=== PATIENT | male | born 1945 | race Caucasian/White ===

== ENCOUNTER 2025-04-12 02:15 | Inpatient (IN) | payer MEDICARE, MEDICAID ==
[~2025-04-12] VITALS: Ht 365.8 cm; Wt 70.3 kg
[2025-04-12] VITALS (28 sets, daily range): BP systolic 89–125; BP diastolic 51–69; PULSE 91–163; RESP 20–40; TEMP 36.2–36.8; O2SAT 95–100
[2025-04-12] MEDS: PIPERACILLIN/TAZO 3.375G/50ML 50 ML IV ONE (03:05)
[2025-04-12] MEDS: ACETAMINOPHEN 650MG SUPP PR STA (03:05)
[2025-04-12] MEDS: SODIUM CHLORIDE 0.9% (SEPSIS BOLUS) IV ONE (03:05)
[2025-04-12 03:07] LABS: BG BASE EXCESS 3.2 mmol/L (-2.0-3.0); BG CARBOXYHEMOGLOBIN 0.5 % (0.5-1.5); BG DEOXYHEMOGLOBIN 2.3 % (0.0-5.0); BG FRACTION INSPIRED OXYGEN 50; BG HCO3 ACT 25.5 mmol/L (21.0-28.0); BG METHEMOGLOBIN 0.2 % (0.5-1.5); BG OXYGEN SATURATION 97.7 % (94.0-98.0); BG OXYHEMOGLOBIN 97.0 % (94.0-98.0); BG PCO2 30.1 mmHg (35.0-48.0); BG PEEP (cmH2O) 5.0 cmH2O; BG PH 7.545 (7.350-7.450); BG PO2 89.0 mmHg (83.0-108.0); BG SAMPLE SITE RIGHT BRACHIAL; BG TIDAL VOLUME(mL) 500.0 mL; BG TOTAL HEMOGLOBIN 9.3 g/dL (13.5-17.5); BG TOTAL RESPIRATORY RATE 36 b/min; BG VENT MODE VENT - AC; BG VENT RATE 14.0 set
[2025-04-12 03:15] LABS: CLARITY URINE CLEAR (CLEAR); COLOR URINE DARK YELLOW (YELLOW); GLUCOSE URINE NEGATIVE (NEGATIVE); KETONES URINE NEGATIVE (NEGATIVE); LEUKOCYTE ESTERASE URINE TRACE (NEGATIVE); NITRITE URINE NEGATIVE (NEGATIVE); OCCULT BLOOD URINE NEGATIVE (NEGATIVE); PH URINE 5.5 (4.5-8.0); PROTEIN URINE 2+ (NEGATIVE); SPECIFIC GRAVITY URINE 1.030 (1.005-1.030); UROBILINOGEN URINE 1.0 E.U./dL (0.2-1.0)
[2025-04-12 03:16] LABS: HEMATOCRIT. 30.8 % (42.0-52.0); HEMOGLOBIN. 9.5 g/dL (14.0-18.0); MEAN PLATELET VOLUME 7.7 fl (7.4-10.4); PLATELET 647 x1000/uL (130-400); RED BLOOD CELL COUNT 3.34 mill/uL (4.7-6.1); RED CELL DISTRIBUTION WIDTH 18.3 % (11.6-14.6)
[2025-04-12 03:28] LABS: INR 1.1
[2025-04-12 03:29] LABS: CREATININE 0.6 mg/dL (0.6-1.3); UREA NITROGEN BLOOD 33 mg/dL (9-23)
[2025-04-12 03:30] LABS: TROPONIN I HIGH SENSITIVITY < 4 ng/L (3.0-53)
[2025-04-12 03:31] LABS: ASPARTATE AMINOTRANSFERASE 25 IU/L (<34); BILIRUBIN DIRECT < 0.1 mg/dL (<=3.0); BILIRUBIN TOTAL 0.2 mg/dL (0.1-1.0); PROTEIN TOTAL 8.6 g/dL (6.0-8.3)
[2025-04-12 03:59] LABS: LACTIC ACID 4.5 mmol/L (0.4-2.0)
[2025-04-12] MEDS: VANCOMYCIN 1G PREMIX 200 ML IV ONE (04:13)
[2025-04-12 04:52] LABS: SQUAMOUS EPITHELIAL CELL URINE FEW /lpf (RARE/1+)
[2025-04-12 04:55] LABS: WBC URINE 0-2 /hpf (0-2)
[2025-04-12 04:56] LABS: RBC URINE 0-2 /hpf (0-2)
[2025-04-12 04:57] LABS: BACTERIA URINE TRACE
[2025-04-12] MEDS: SODIUM CHLORIDE 0.9% 1,000 ML IV ONE ×2 (05:14→10:14)
[2025-04-12 05:42] LABS: TROPONIN I HIGH SENSITIVITY 4 ng/L (3.0-53)
[2025-04-12] MEDS ORDERED: HYDROCODONE/ACETAMINOPHEN 7.5/325MG TABLET GT PRN (05:45)
[2025-04-12] MEDS ORDERED: IPRATROPIUM/ALBUTEROL 0.5-3(2.5)MG/3ML NEB NEB PRN (05:45)
[2025-04-12] MEDS ORDERED: ACETAMINOPHEN 650MG/20.3ML UDC GT PRN (05:45)
[2025-04-12] MEDS ORDERED: DIPHENHYDRAMINE 12.5MG/5ML UDC GT PRN (05:45)
[2025-04-12] MEDS ORDERED: BISACODYL 5MG TABLET PO PRN (05:45)
[2025-04-12] MEDS ORDERED: BISACODYL 10MG SUPP PR PRN (05:45)
[2025-04-12] MEDS ORDERED: ONDANSETRON HCL 4MG TABLET PO PRN (05:45)
[2025-04-12 06:29] LABS: BAND% 7.0 % (1.0-6.0); EOSINOPHILS % MANUAL 1.0 % (0.0-5.0); LYMPHOCYTES % MANUAL 9.0 % (20.0-50.0); MONOCYTES % MANUAL 3.0 % (2.0-8.0); NEUTROPHILS % MANUAL 80.0 % (45.0-75.0); PLATELET ESTIMATE INCREASED
[2025-04-12] MEDS ORDERED: NALOXONE HCL 0.4MG/ML VIAL IV PRN (06:45)
[2025-04-12] MEDS ORDERED: DEXT 5%/0.45% NACL 1000ML 1,000 ML IV SCH (07:00)
[2025-04-12] MEDS: ALBUTEROL (0.083%) 2.5MG/3ML NEB INH SCH (08:22)
[2025-04-12] MEDS: FOLIC ACID 1MG TABLET GT SCH (10:11)
[2025-04-12] MEDS: ZINC SULFATE 220 MG ( 50 ) CAPSULE GT SCH (10:12)
[2025-04-12] MEDS: MULTIVITAMINS,THER W-MINERALS TABLET GT SCH (10:12)
[2025-04-12] MEDS: FAMOTIDINE 20MG TABLET GT SCH (10:12)
[2025-04-12] MEDS: ASCORBIC ACID 500 MG TABLET GT SCH (10:13)
[2025-04-12] MEDS: THIAMINE HCL 100MG TABLET GT SCH (10:13)
[2025-04-12] MEDS: FERROUS SULFATE 300MG/5ML UDC GT SCH (10:15)
[2025-04-12] MEDS: CEFTRIAXONE 2GM/50ML 50 ML IV SCH (10:16)
[2025-04-12] MEDS: AZITHROMYCIN 500MG/250ML 250 ML IV SCH (10:17)
[2025-04-12] MEDS ORDERED: METO25TA6 PO (11:16)
[2025-04-12] MEDS ORDERED: ATOR-2 PO (11:16)
[2025-04-12] MEDS: SODIUM CHLORIDE 0.9% 1,000 ML IV SCH (11:51)
[2025-04-12] MEDS: INSULIN LISPRO 100 UNITS/ML SUBCUT SCH (13:00)
[2025-04-12] MEDS ORDERED: DEXTROSE 50% WATER 50ML SYRINGE IV PRN (13:00)
[2025-04-12] MEDS: PIPERACILLIN/TAZO 3.375G/50ML 50 ML IV SCH (14:19)
[2025-04-12] MEDS: IPRATROPIUM BROMIDE (0.02%) 0.5MG/2.5ML NEB HHN SCH (14:22)
[2025-04-12] MEDS: ENOXAPARIN 40MG/0.4ML SYR SUBCUT SCH (16:59)
[2025-04-12] MEDS: BLOOD SUGAR DIAGNOSTIC STRIP TEST SCH (16:59)
[2025-04-12] MEDS: VANCOMYCIN 750MG PMX (XELLIA) 150 ML IV SCH (22:29)
[2025-04-12] MEDS: ATORVASTATIN CALCIUM 40MG TABLET PO SCH (22:30)
[2025-04-13] VITALS (30 sets, daily range): BP systolic 100–120; BP diastolic 58–68; PULSE 85–102; RESP 17–37; TEMP 36.5–36.9474; O2SAT 30–100
[2025-04-13 06:32] LABS: UREA NITROGEN BLOOD 20 mg/dL (9-23)
[2025-04-13 06:35] LABS: CREATININE 0.4 mg/dL (0.6-1.3)
[2025-04-13] MEDS ORDERED: KCL 20MEQ/100ML PREMIX 100 ML IV SCH (08:00)
[2025-04-13 08:23] LABS: BG BASE EXCESS 0.3 mmol/L (-2.0-3.0); BG CARBOXYHEMOGLOBIN 0.3 % (0.5-1.5); BG DEOXYHEMOGLOBIN 2.3 % (0.0-5.0); BG FRACTION INSPIRED OXYGEN 40; BG HCO3 ACT 23.1 mmol/L (21.0-28.0); BG METHEMOGLOBIN 0.0 % (0.5-1.5); BG OXYGEN SATURATION 97.7 % (94.0-98.0); BG OXYHEMOGLOBIN 97.4 % (94.0-98.0); BG PCO2 28.9 mmHg (35.0-48.0); BG PEEP (cmH2O) 5.0 cmH2O; BG PH 7.520 (7.350-7.450); BG PO2 96.3 mmHg (83.0-108.0); BG SAMPLE SITE RIGHT RADIAL; BG TIDAL VOLUME(mL) 500.0 mL; BG TOTAL HEMOGLOBIN 6.7 g/dL (13.5-17.5); BG VENT MODE VENT - AC/VC; BG VENT RATE 14.0 set
[2025-04-13] MEDS: AZITHROMYCIN 500MG/250ML 250 ML IV SCH (08:56)
[2025-04-13 10:33] LABS: HEMATOCRIT. 22.5 % (42.0-52.0); MEAN PLATELET VOLUME 8.0 fl (7.4-10.4); PLATELET 498 x1000/uL (130-400); RED BLOOD CELL COUNT 2.57 mill/uL (4.7-6.1); RED CELL DISTRIBUTION WIDTH 17.7 % (11.6-14.6)
[2025-04-13 10:50] LABS: HEMOGLOBIN. 7.0 g/dL (14.0-18.0)
[2025-04-13 11:34] LABS: BAND% 15.0 % (1.0-6.0); LYMPHOCYTES % MANUAL 3.0 % (20.0-50.0); MONOCYTES % MANUAL 1.0 % (2.0-8.0); NEUTROPHILS % MANUAL 81.0 % (45.0-75.0)
[2025-04-13 11:35] LABS: PLATELET ESTIMATE SLIGHTLY INCREASED
[2025-04-13] MEDS: SODIUM CHLORIDE 0.9% 1,000 ML IV SCH (12:00)
[2025-04-13] MEDS: GUAIFENESIN 200MG/10ML SUGAR FREE UDC PO SCH (13:05)
[2025-04-13] MEDS: KCL 20MEQ/100ML PREMIX 100 ML IV SCH (15:14)
[2025-04-14] VITALS (26 sets, daily range): BP systolic 109–154; BP diastolic 61–96; PULSE 75–100; RESP 26–38; TEMP 36.44736–37.1; O2SAT 90–100
[2025-04-14] MEDS: ACETYLCYSTEINE 200MG/ML 20% VIAL 4ML INH SCH (02:38)
[2025-04-14 06:54] LABS: BASOPHILS % 0.5 % (0.0-2.0); EOSINOPHILS % 1.2 % (0.0-5.0); LYMPHOCYTES % 10.6 % (20.0-50.0); MEAN PLATELET VOLUME 7.5 fl (7.4-10.4); MONOCYTES % 4.5 % (2.0-8.0); NEUTROPHILS % 83.2 % (40.0-76.0); PLATELET 460 x1000/uL (130-400); RED BLOOD CELL COUNT 2.47 mill/uL (4.7-6.1); RED CELL DISTRIBUTION WIDTH 17.0 % (11.6-14.6)
[2025-04-14 07:56] LABS: HEMATOCRIT. 21.1 % (42.0-52.0); HEMOGLOBIN. 7.0 g/dL (14.0-18.0)
[2025-04-14 08:19] LABS: CREATININE 0.4 mg/dL (0.6-1.3); UREA NITROGEN BLOOD 15 mg/dL (9-23)
[2025-04-14] MEDS: ALBUTEROL (0.083%) 2.5MG/3ML NEB INH PRN (08:32)
[2025-04-14 11:30] LABS: BG BASE EXCESS -1.9 mmol/L (-2.0-3.0); BG CARBOXYHEMOGLOBIN 0.6 % (0.5-1.5); BG DEOXYHEMOGLOBIN 1.4 % (0.0-5.0); BG FRACTION INSPIRED OXYGEN 40; BG HCO3 ACT 20.7 mmol/L (21.0-28.0); BG METHEMOGLOBIN 0.3 % (0.5-1.5); BG OXYGEN SATURATION 98.6 % (94.0-98.0); BG OXYHEMOGLOBIN 97.7 % (94.0-98.0); BG PCO2 27.7 mmHg (35.0-48.0); BG PEEP (cmH2O) 5.0 cmH2O; BG PH 7.492 (7.350-7.450); BG PO2 111.6 mmHg (83.0-108.0); BG SAMPLE SITE LEFT RADIAL; BG TIDAL VOLUME(mL) 450.0 mL; BG TOTAL HEMOGLOBIN 8.9 g/dL (13.5-17.5); BG VENT MODE AC PRVC; BG VENT RATE 12.0 set
[2025-04-14] MEDS: IPRATROPIUM/ALBUTEROL 0.5-3(2.5)MG/3ML NEB HHN SCH (14:12)
[2025-04-14] MEDS ORDERED: VANCOMYCIN 750MG PREMIX 150 ML IV SCH (21:00)
[2025-04-15] VITALS (23 sets, daily range): BP systolic 126–170; BP diastolic 88–106; PULSE 91–115; RESP 25–38; TEMP 36.3–36.8; O2SAT 96–100
[2025-04-15 06:09] LABS: BASOPHILS % 0.3 % (0.0-2.0); EOSINOPHILS % 1.7 % (0.0-5.0); HEMATOCRIT. 28.4 % (42.0-52.0); HEMOGLOBIN. 9.3 g/dL (14.0-18.0); LYMPHOCYTES % 10.7 % (20.0-50.0); MEAN PLATELET VOLUME 7.1 fl (7.4-10.4); MONOCYTES % 6.2 % (2.0-8.0); NEUTROPHILS % 81.1 % (40.0-76.0); PLATELET 517 x1000/uL (130-400); RED BLOOD CELL COUNT 3.38 mill/uL (4.7-6.1); RED CELL DISTRIBUTION WIDTH 18.1 % (11.6-14.6)
[2025-04-15 06:26] LABS: CREATININE 0.4 mg/dL (0.6-1.3); UREA NITROGEN BLOOD 7 mg/dL (9-23)
[2025-04-15] MEDS: AMLODIPINE 5MG TABLET GT SCH (14:59)
[2025-04-15] MEDS: METOPROLOL TARTRATE 25MG TABLET PO SCH (22:28)
[2025-04-16] VITALS (23 sets, daily range): BP systolic 90–135; BP diastolic 62–85; PULSE 78–104; RESP 22–34; TEMP 36.3–36.9; O2SAT 95–100
[2025-04-16 06:20] LABS: HEMATOCRIT. 29.6 % (42.0-52.0); HEMOGLOBIN. 9.7 g/dL (14.0-18.0); MEAN PLATELET VOLUME 7.2 fl (7.4-10.4); PLATELET 476 x1000/uL (130-400); RED BLOOD CELL COUNT 3.55 mill/uL (4.7-6.1); RED CELL DISTRIBUTION WIDTH 17.4 % (11.6-14.6)
[2025-04-16 06:36] LABS: CREATININE 0.4 mg/dL (0.6-1.3); UREA NITROGEN BLOOD 6 mg/dL (9-23)
[2025-04-16] MEDS: AMLODIPINE 2.5MG TABLET GT SCH (09:09)
[2025-04-16] MEDS: POTASSIUM CHLORIDE 20MEQ/PACKET GT NR (09:10)
[2025-04-16] MEDS: POTASSIUM CHLORIDE 20MEQ/PACKET PO SCH (09:11)
[2025-04-16 09:38] LABS: BAND% 3.0 % (1.0-6.0); LYMPHOCYTES % MANUAL 14.0 % (20.0-50.0); METAMYELOCYTES % 1.0 % (0-0); MONOCYTES % MANUAL 8.0 % (2.0-8.0); NEUTROPHILS % MANUAL 74.0 % (45.0-75.0); PLATELET ESTIMATE INCREASED
[2025-04-16] MEDS ORDERED: FE300LUD GT (14:57)
[2025-04-16] MEDS ORDERED: AMLO2.5T45 GT (14:57)
[2025-04-16] MEDS ORDERED: KCL 20MEQ/100ML PREMIX 100 ML IV SCH (15:00)
[2025-04-17] VITALS (24 sets, daily range): BP systolic 105–133; BP diastolic 59–87; PULSE 77–97; RESP 18–37; TEMP 36.4–36.8; O2SAT 94–100
[2025-04-17 06:48] LABS: HEMATOCRIT. 27.5 % (42.0-52.0); HEMOGLOBIN. 8.7 g/dL (14.0-18.0); MEAN PLATELET VOLUME 7.2 fl (7.4-10.4); PLATELET 430 x1000/uL (130-400); RED BLOOD CELL COUNT 3.19 mill/uL (4.7-6.1); RED CELL DISTRIBUTION WIDTH 18.3 % (11.6-14.6)
[2025-04-17 07:12] LABS: CREATININE 0.4 mg/dL (0.6-1.3); UREA NITROGEN BLOOD 6 mg/dL (9-23)
[2025-04-17 09:44] LABS: BAND% 1.0 % (1.0-6.0); EOSINOPHILS % MANUAL 2.0 % (0.0-5.0); LYMPHOCYTES % MANUAL 6.0 % (20.0-50.0); MONOCYTES % MANUAL 5.0 % (2.0-8.0); NEUTROPHILS % MANUAL 86.0 % (45.0-75.0); PLATELET ESTIMATE INCREASED
== END 2025-04-17 17:30 | DRG 870 ==
LOC: ER 02:15 → 5EST 04:17 → EDBEDREQTM 04:53 → EDBEDREQSVC 04:53 → EDBEDREQ 04:53 → CANRESERV 05:25 → ENRESERV 05:25 → EDBEDREQSVC 05:28 → ENRESERV 05:35 → CANRESERV 05:35 → ENRESERV 05:47
PROVIDERS: ADMIT Internal Medicine; ATTEND Internal Medicine
PROC: 5A1955Z Respiratory Ventilation, Greater than 96 Consecutive Hours (ICD-10-PCS; principal; 2025-04-12)
PROC: 30233N1 Transfusion of Nonautologous Red Blood Cells into Peripheral Vein, Percutaneous Approach (ICD-10-PCS; 2025-04-13)
DX: A41.9 Sepsis, unspecified organism (principal); E43 Unspecified severe protein-calorie malnutrition; L89.224 Pressure ulcer of left hip, stage 4; J96.20 Acute and chronic respiratory failure, unspecified whether with hypoxia or hypercapnia; J15.69 Pneumonia due to other Gram-negative bacteria; J15.1 Pneumonia due to Pseudomonas; E87.20 Acidosis, unspecified; G93.40 Encephalopathy, unspecified; G91.1 Obstructive hydrocephalus; F20.0 Paranoid schizophrenia; J44.0 Chronic obstructive pulmonary disease with (acute) lower respiratory infection; J90 Pleural effusion, not elsewhere classified; Z68.1 Body mass index [BMI] 19.9 or less, adult; Z99.11 Dependence on respirator [ventilator] status; R13.10 Dysphagia, unspecified; I10 Essential (primary) hypertension; E78.5 Hyperlipidemia, unspecified; J44.9 Chronic obstructive pulmonary disease, unspecified; E87.6 Hypokalemia; D63.8 Anemia in other chronic diseases classified elsewhere; E11.36 Type 2 diabetes mellitus with diabetic cataract; R54 Age-related physical debility; R80.9 Proteinuria, unspecified; Y95 Nosocomial condition; Z93.1 Gastrostomy status; Z93.0 Tracheostomy status; Z98.2 Presence of cerebrospinal fluid drainage device; Z86.73 Personal history of transient ischemic attack (TIA), and cerebral infarction without residual deficits; Z79.899 Other long term (current) drug therapy
CPT/HCPCS: 31720; 36415; 36600; 71045; 74176; 80048; 80076; 80202; 81003; 82270; 82375; 82805; 82962; 83036; 83540; 83550; 83605; 83735; 83880; 84145; 84484; 85014; 85018; 85025; 85384; 86850; 86900; 86920; 87070; 87077; 87186; 93005; 93306; 93970; 94002; 94003; 94070; 94640; 94664; 99291; J0456; J0696; J1650; J2543; J3370; J3480; J7030; J7608; P9016

== ENCOUNTER 2025-07-20 07:14 | Inpatient (IN) | payer MEDICARE, MEDICAID ==
[~2025-07-20] VITALS: Ht 170.2 cm; Wt 61.7 kg
[2025-07-20] VITALS (16 sets, daily range): BP systolic 86–97; BP diastolic 47–61; PULSE 90–137; RESP 17–33; TEMP 36.4–37.6; O2SAT 97–100
[~2025-07-20 07:14] MED LIST: AMLO2.5T45 GT; ATOR-2 PO; AZIT500T8 MT; CEFE1FRO2 IV; FE300LUD GT; METO25TA6 PO
[2025-07-20 07:47] LABS: HEMATOCRIT. 31.8 % (42.0-52.0); HEMOGLOBIN. 10.3 g/dL (14.0-18.0); MEAN PLATELET VOLUME 7.4 fl (7.4-10.4); PLATELET 486 x1000/uL (130-400); RED BLOOD CELL COUNT 3.44 mill/uL (4.7-6.1); RED CELL DISTRIBUTION WIDTH 15.6 % (11.6-14.6)
[2025-07-20] MEDS: PIPERACILLIN/TAZO 3.375G/50ML 50 ML IV ONE (07:48)
[2025-07-20] MEDS: VANCOMYCIN 1G PREMIX 200 ML IV ONE (07:49)
[2025-07-20] MEDS: SODIUM CHLORIDE 0.9% (SEPSIS BOLUS) IV ONE (07:49)
[2025-07-20] MEDS: SODIUM CHLORIDE 0.9% 1,000 ML IV ONE (07:49)
[2025-07-20 07:57] LABS: INR 1.1
[2025-07-20 08:20] LABS: CREATININE 0.6 mg/dL (0.6-1.3)
[2025-07-20 08:21] LABS: UREA NITROGEN BLOOD 18 mg/dL (9-23)
[2025-07-20 08:23] LABS: ASPARTATE AMINOTRANSFERASE 75 IU/L (<34); BILIRUBIN DIRECT < 0.1 mg/dL (<=3.0); BILIRUBIN TOTAL 0.2 mg/dL (0.1-1.0); PROTEIN TOTAL 8.4 g/dL (6.0-8.3)
[2025-07-20 09:47] LABS: INFLUENZA TYPE A Presumptive Negative (Pres. Neg.)
[2025-07-20 09:48] LABS: INFLUENZA TYPE B Presumptive Negative (Pres. Neg.)
[2025-07-20] MEDS: ACETAMINOPHEN 1000MG/100ML 100 ML IV ONE (10:09)
[2025-07-20] MEDS ORDERED: HYDROCODONE/ACETAMINOPHEN 5/325MG TABLET PO PRN (10:15)
[2025-07-20] MEDS ORDERED: ZOLPIDEM TARTRATE 5MG TABLET PO PRN (10:15)
[2025-07-20] MEDS ORDERED: ONDANSETRON HCL 4MG/2ML INJ IV PRN (10:15)
[2025-07-20] MEDS ORDERED: CLONIDINE 0.1MG TABLET PO PRN (10:15)
[2025-07-20] MEDS ORDERED: MAGNESIUM/ALUMINUM HYDROXIDE/SIMETHICONE 30ML UDC PO PRN (10:15)
[2025-07-20 10:31] LABS: BAND% 13.0 % (1.0-6.0); EOSINOPHILS % MANUAL 1.0 % (0.0-5.0); LYMPHOCYTES % MANUAL 9.0 % (20.0-50.0); MONOCYTES % MANUAL 3.0 % (2.0-8.0); NEUTROPHILS % MANUAL 74.0 % (45.0-75.0)
[2025-07-20 10:32] LABS: PLATELET ESTIMATE INCREASED
[2025-07-20 12:15] LABS: BG BASE EXCESS 2.8 mmol/L (-2.0-3.0); BG CARBOXYHEMOGLOBIN 0.6 % (0.5-1.5); BG DEOXYHEMOGLOBIN 1.4 % (0.0-5.0); BG FRACTION INSPIRED OXYGEN 40; BG HCO3 ACT 26.9 mmol/L (21.0-28.0); BG METHEMOGLOBIN 0.1 % (0.5-1.5); BG OXYGEN SATURATION 98.6 % (94.0-98.0); BG OXYHEMOGLOBIN 97.9 % (94.0-98.0); BG PCO2 39.0 mmHg (35.0-48.0); BG PEEP (cmH2O) 5.0 cmH2O; BG PH 7.456 (7.350-7.450); BG PO2 108.7 mmHg (83.0-108.0); BG SAMPLE SITE RIGHT RADIAL; BG TIDAL VOLUME(mL) 450.0 mL; BG TOTAL HEMOGLOBIN 10.0 g/dL (13.5-17.5); BG VENT MODE VENT - AC; BG VENT RATE 16.0 set
[2025-07-20] MEDS: ENOXAPARIN 30MG/0.3ML SYR SUBCUT SCH (12:50)
[2025-07-20] MEDS ORDERED: METHYLPREDNISOLONE SOD SUCC 40MG/ML (ACT-O-VIAL) IV SCH (14:00)
[2025-07-20] MEDS: SODIUM CHLORIDE 0.9% 1,000 ML IV SCH (14:08)
[2025-07-20] MEDS: PIPERACILLIN/TAZO 3.375G/50ML 50 ML IV SCH (15:31)
[2025-07-20] MEDS: ACETAMINOPHEN 325MG TABLET PO PRN (18:28)
[2025-07-20] MEDS ORDERED: VANCOMYCIN 750MG/150ML (BAXTER) IV SCH (20:00)
[2025-07-20] MEDS: VANCOMYCIN 500 MG in DEXT 5% WATER 100 ML IV SCH (20:35)
[2025-07-20] MEDS ORDERED: DEXTROSE 50% WATER 50ML SYRINGE IV PRN (23:30)
[2025-07-21] VITALS (24 sets, daily range): BP systolic 97–120; BP diastolic 52–60; PULSE 85–110; RESP 16–28; TEMP 36.4–37.4; O2SAT 98–100
[2025-07-21 07:39] LABS: CLARITY URINE CLOUDY (CLEAR); COLOR URINE YELLOW (YELLOW); GLUCOSE URINE NEGATIVE (NEGATIVE); KETONES URINE NEGATIVE (NEGATIVE); LEUKOCYTE ESTERASE URINE NEGATIVE (NEGATIVE); NITRITE URINE NEGATIVE (NEGATIVE); OCCULT BLOOD URINE NEGATIVE (NEGATIVE); PH URINE 6.0 (4.5-8.0); PROTEIN URINE 1+ (NEGATIVE); SPECIFIC GRAVITY URINE 1.031 (1.005-1.030); UROBILINOGEN URINE 0.2 E.U./dL (0.2-1.0)
[2025-07-21] MEDS: INSULIN LISPRO 100 UNITS/ML SUBCUT SCH (08:00)
[2025-07-21] MEDS: BLOOD SUGAR DIAGNOSTIC STRIP TEST SCH (08:19)
[2025-07-21 08:42] LABS: UREA NITROGEN BLOOD 14 mg/dL (9-23)
[2025-07-21] MEDS: PANTOPRAZOLE SODIUM 40 MG/VIAL IV SCH (08:50)
[2025-07-21 08:54] LABS: SQUAMOUS EPITHELIAL CELL URINE RARE /lpf (RARE/1+)
[2025-07-21 08:55] LABS: BACTERIA URINE TRACE
[2025-07-21 08:56] LABS: RBC URINE NONE SEEN /hpf (0-2); WBC URINE 0-2 /hpf (0-2)
[2025-07-21 09:49] LABS: CREATININE 0.4 mg/dL (0.6-1.3)
[2025-07-21] MEDS ORDERED: CEFEPIME 1GM IN DEXT 5% 50ML IV SCH (10:15)
[2025-07-21] MEDS ORDERED: CEFEPIME 2GM PREMIX 100ML IV SCH (11:30)
[2025-07-22] VITALS (23 sets, daily range): BP systolic 112–131; BP diastolic 59–72; PULSE 76–104; RESP 14–37; TEMP 36.4–37.2; O2SAT 96–99
[2025-07-22 13:12] LABS: BASOPHILS % 0.2 % (0.0-2.0); EOSINOPHILS % 3.3 % (0.0-5.0); HEMATOCRIT. 23.7 % (42.0-52.0); HEMOGLOBIN. 7.7 g/dL (14.0-18.0); LYMPHOCYTES % 10.5 % (20.0-50.0); MEAN PLATELET VOLUME 7.4 fl (7.4-10.4); MONOCYTES % 6.2 % (2.0-8.0); NEUTROPHILS % 79.8 % (40.0-76.0); PLATELET 325 x1000/uL (130-400); RED BLOOD CELL COUNT 2.53 mill/uL (4.7-6.1); RED CELL DISTRIBUTION WIDTH 15.3 % (11.6-14.6)
[2025-07-22 13:18] LABS: CREATININE 0.4 mg/dL (0.6-1.3); UREA NITROGEN BLOOD 5 mg/dL (9-23)
[2025-07-22] MEDS ORDERED: NALOXONE HCL 0.4MG/ML VIAL IV PRN (13:45)
[2025-07-22] MEDS: MAGNESIUM 4 G PREMIX 100 ML IV SCH (16:00)
[2025-07-22] MEDS: VANCOMYCIN 750MG PREMIX 150 ML IV SCH (21:38)
[2025-07-23] VITALS (18 sets, daily range): BP systolic 136–156; BP diastolic 72–84; PULSE 89–103; RESP 16–28; TEMP 36.4–36.9; O2SAT 96–98
[2025-07-23 04:54] LABS: CREATININE 0.4 mg/dL (0.6-1.3); UREA NITROGEN BLOOD 6 mg/dL (9-23)
[2025-07-23 06:42] LABS: BASOPHILS % 0.3 % (0.0-2.0); EOSINOPHILS % 2.7 % (0.0-5.0); HEMATOCRIT. 23.0 % (42.0-52.0); HEMOGLOBIN. 7.6 g/dL (14.0-18.0); LYMPHOCYTES % 7.1 % (20.0-50.0); MEAN PLATELET VOLUME 7.4 fl (7.4-10.4); MONOCYTES % 5.7 % (2.0-8.0); NEUTROPHILS % 84.2 % (40.0-76.0); PLATELET 357 x1000/uL (130-400); RED BLOOD CELL COUNT 2.49 mill/uL (4.7-6.1); RED CELL DISTRIBUTION WIDTH 15.2 % (11.6-14.6)
[2025-07-23] MEDS: ENOXAPARIN 40MG/0.4ML SYR SUBCUT SCH (08:43)
[2025-07-23] MEDS ORDERED: [UNRECOGNIZED DRUG - CODE] IV (09:22)
== END 2025-07-23 21:34 | DRG 720 ==
LOC: ER 07:14 → 5EST 08:29 → EDBEDREQ 08:33 → EDBEDREQTM 08:33 → EDBEDREQSVC 09:18 → ENRESERV 10:21
PROVIDERS: ADMIT Internal Medicine; ATTEND Internal Medicine
PROC: 5A1945Z Respiratory Ventilation, 24-96 Consecutive Hours (ICD-10-PCS; principal; 2025-07-20)
DX: A41.89 Other specified sepsis (principal); R65.21 Severe sepsis with septic shock; L89.224 Pressure ulcer of left hip, stage 4; Z99.11 Dependence on respirator [ventilator] status; G93.49 Other encephalopathy; L89.324 Pressure ulcer of left buttock, stage 4; I11.0 Hypertensive heart disease with heart failure; L89.523 Pressure ulcer of left ankle, stage 3; Z20.822 Contact with and (suspected) exposure to COVID-19; I50.32 Chronic diastolic (congestive) heart failure; E11.9 Type 2 diabetes mellitus without complications; B96.89 Other specified bacterial agents as the cause of diseases classified elsewhere; E78.00 Pure hypercholesterolemia, unspecified; Y95 Nosocomial condition; J96.11 Chronic respiratory failure with hypoxia; J44.0 Chronic obstructive pulmonary disease with (acute) lower respiratory infection; J18.9 Pneumonia, unspecified organism; F20.0 Paranoid schizophrenia; Z93.0 Tracheostomy status; I69.391 Dysphagia following cerebral infarction; Z79.899 Other long term (current) drug therapy; Z93.1 Gastrostomy status; Z98.2 Presence of cerebrospinal fluid drainage device
CPT/HCPCS: 31720; 36415; 36600; 71045; 80048; 80076; 80202; 81003; 82375; 82805; 82962; 83036; 83605; 84145; 84443; 85025; 87070; 87077; 87186; 87426; 87804; 93005; 93970; 94002; 94003; 94070; 94664; 96365; 96368; 99291; J0692; J1650; J2470; J2543; J3373; J3475; J7030; J7060; J0131